=== PATIENT | female | born 1995 | race Caucasian/White ===

== ENCOUNTER 2016-03-24 20:01 | Emergency (ER) | payer MEDICAID ==
[~2016-03-24] VITALS: Ht 157.5 cm; Wt 74.8 kg
[2016-03-24 20:05] VITALS: BP 126/78; PULSE 78; RESP 16; TEMP 98.2; O2SAT 100
--- NOTE | 2016-03-24 20:15 | NUR ---
Patient AAO x4, sitting in bed, c/o 08/24 abd pain x 3 days denies N/V/D no acute distress noted. Denies chest pain, denies shortness of breath. Able to speak in full sentences. Will continue to monitor. Vital signs stable.
--- NOTE | 2016-03-24 20:15 | NUR ---
Placed in room 08 . Placed on coroner's juror, blood pressure machine and pulse oximeter. To gown for exam. Side rails up. Report given to DOT Collier.
--- NOTE | 2016-03-24 20:20 | NUR ---
ER at bedside examining patient.
[2016-03-24] MEDS ORDERED: NACL 0.9% 1,000 ML IV ONE (20:21)
--- NOTE | 2016-03-24 20:25 | NUR ---
Patient unable to urinate, md aware and patient has been told a urine sample needs to be given prior to medication by MD. Will continue to monitor.
[2016-03-24] MEDS ORDERED: BELLADONNA ALKALOIDS/PHENOBARB 5 ML UDC PO ONE (20:30)
[2016-03-24] MEDS ORDERED: PROMETHAZINE HCL 25 MG/ML AMP IVP ONE (20:30)
[2016-03-24 20:50] LABS: BASOPHILS % (AUTO) 0.3 % (0.0-2.0); EOSINOPHILS # (AUTO) 0.1 K/uL (0.0-0.4); EOSINOPHILS % (AUTO) 1.7 % (0.0-4.0); HEMATOCRIT 36.8 % (36-48); HEMOGLOBIN 12.4 g/dL (12.0-16.0); LYMPHOCYTES # (AUTO) 1.2 K/uL (1.0-5.5); LYMPHOCYTES % (AUTO) 32.7 % (20.5-51.5); MEAN CORPUSCULAR HEMOGLOBIN 30 pg (27-31); MEAN CORPUSCULAR HGB CONC 34 % (32-36); MEAN CORPUSCULAR VOLUME 89 fL (79.0-98.0); MONOCYTES # (AUTO) 0.4 K/uL (0.0-1.0); MONOCYTES % (AUTO) 11.5 % (1.7-9.3); NEUTROPHILS # (AUTO) 1.9 K/uL (1.8-7.7); NEUTROPHILS % (AUTO) 53.8 % (40.0-70.0); PLATELET COUNT (AUTO) 270 K/uL (130-430); RED BLOOD CELL COUNT(AUTO) 4.14 MIL/uL (4.2-6.2); RED CELL DISTRIBUTION WIDTH 12.6 % (9.0-15.0); WHITE BLOOD COUNT (AUTO) 3.6 K/uL (4.8-10.8)
--- NOTE | 2016-03-24 21:00 | NUR ---
Patient unable to urinate at this time. Given oral fluids and will continue to monitor. Medications to be held per md verbal order until urine sample and urine hcg is collected.
[2016-03-24 21:03] LABS: CALCIUM 8.5 mg/dL (8.4-11.0); CREATININE 0.75 mg/dL (0.55-1.30); POTASSIUM 3.8 mmol/L (3.5-5.1)
[2016-03-24 21:07] LABS: ALBUMIN 3.8 g/dL (3.4-4.8); PROTHROMBIN TIME 10.4 SECS (9.5-12.5); TOTAL BILIRUBIN 0.7 mg/dL (0.0-1.0); TOTAL PROTEIN, SERUM 7.9 g/dL (6.4-8.3)
[2016-03-24 21:22] LABS: BLOOD, URINE 3+ (NEGATIVE); CLARITY/URINE HAZY (CLEAR); GLUCOSE,URINE NEGATIVE (NEGATIVE); KETONES,URINE TRACE (NEGATIVE); LEUKOCYTE ESTERASE ,URINE NEGATIVE (NEGATIVE); NITRITE, URINE NEGATIVE (NEGATIVE); PROTEIN URINE 2+ (NEGATIVE)
[2016-03-24 21:29] LABS: BILIRUBIN,URINE NEGATIVE (NEGATIVE)
[2016-03-24 21:31] LABS: BACTERIA,URINE MANY /HPF (None Seen); COLOR,URINE YELLOW (YELLOW); RBC,URINE >100 /HPF (0-3)
[2016-03-24 21:32] LABS: MUCUS,URINE 1+ /LPF (None Seen)
[2016-03-24 22:55] VITALS: BP 125/75; PULSE 76; RESP 16; TEMP 98.2; O2SAT 100
--- NOTE | 2016-03-24 22:55 | NUR ---
Patient given written and verbal discharge instructions and verbalizes understanding. ER MD discussed with patient the results and treatment provided. Patient in stable condition. ID arm band removed. IV catheter removed intact and dressing applied, no active bleeding. Rx of Rantidine given. Patient educated on pain management and to follow up with PMD. Pain Scale 0/10. Opportunity for questions provided and answered.
== END 2016-03-24 22:55 | disposition home or self-care (01) ==
LOC: SED 20:01
DX: K29.00 Acute gastritis without bleeding (principal); Z88.8 Allergy status to other drugs, medicaments and biological substances; Z90.49 Acquired absence of other specified parts of digestive tract
CPT/HCPCS: 36415; 80053; 81000; 81025; 82150; 83690; 85025; 85610; 85730; 87086; 96361; 96374; 99284; J2550; J7030

== ENCOUNTER 2016-05-23 21:59 | Emergency (ER) | payer MEDICAID ==
[~2016-05-23] VITALS: Ht 160 cm; Wt 74.4 kg
[2016-05-23 22:10] VITALS: BP_SYST 125
--- NOTE | 2016-05-23 22:20 | NUR ---
Note jaseivan in EDM - 05/23/16 at 2329 by MUSHT[facility] PT C/O ANXIETY AND NECK MUSCLE PAIN 02/24 THAT SHE STATES IS TOLERABLE. NO N/V/D. NO DIZZINESS. PT STATES SHE TOOK OXYCODONE AND DRANK 3 CUPS OF COFFE AT HOME. SAFETY PRECUATIONS IN PLACE, WILL CONTINUE TO MONITOR.
--- NOTE | 2016-05-23 22:34 | NUR ---
Patient to ER bed 8 for evaluation. Side rails up. Report given to DTO Espinosa.
--- NOTE | 2016-05-23 22:40 | NUR ---
ER Dr. DE LOS SANTOS at bedside examining patient.
--- NOTE | 2016-05-23 22:40 | NUR ---
PT C/O ANXIETY AND NECK MUSCLE PAIN 02/24 THAT SHE STATES IS TOLERABLE. NO N/V/D. NO DIZZINESS. PT STATES SHE TOOK OXYCODONE AND DRANK 3 CUPS OF COFFE AT HOME. SAFETY PRECUATIONS IN PLACE, WILL CONTINUE TO MONITOR.
[2016-05-23 23:00] VITALS: BP_SYST 121
--- NOTE | 2016-05-23 23:00 | NUR ---
Patient given written and verbal discharge instructions and verbalizes understanding. ER MD dr. monroe discussed with patient the results and treatment provided. Patient in stable condition. ID arm band removed. Rx of xanax given. Patient educated on pain management and to follow up with PMD. Pain Scale 0/10 Opportunity for questions provided and answered.
== END 2016-05-23 23:00 | disposition home or self-care (01) ==
LOC: SED 21:59
DX: M54.2 Cervicalgia (principal); F41.9 Anxiety disorder, unspecified; Z88.8 Allergy status to other drugs, medicaments and biological substances
CPT/HCPCS: 99283

== ENCOUNTER 2016-09-10 16:23 | Emergency (ER) | payer MEDICAID ==
[~2016-09-10] VITALS: Ht 160 cm; Wt 75.7 kg
[2016-09-10 16:25] VITALS: BP_SYST 131
--- NOTE | 2016-09-10 17:00 | NUR ---
BROUGHT BACK TO BED #5 AND REPORT GIVEN TO FILEMON
--- NOTE | 2016-09-10 17:15 | NUR ---
Patient to ED for eval of possible anxiety attack, patient reports that she normally takes Xanax for this. Patient alert and oriented in nad, awaiting eval by ER MD-no other complaints at this time, will continue to observe and assess.
--- NOTE | 2016-09-10 17:30 | NUR ---
Dr Mcdonald at bedside to evaluate patient.
[2016-09-10 17:33] LABS: BILIRUBIN,URINE NEGATIVE (NEGATIVE); BLOOD, URINE 2+ (NEGATIVE); CLARITY/URINE SL HAZY (CLEAR); COLOR,URINE YELLOW (YELLOW); GLUCOSE,URINE NEGATIVE (NEGATIVE); KETONES,URINE NEGATIVE (NEGATIVE); LEUKOCYTE ESTERASE ,URINE NEGATIVE (NEGATIVE); NITRITE, URINE NEGATIVE (NEGATIVE); PH,URINE 6.5 (5.0-8.0); PROTEIN URINE NEGATIVE (NEGATIVE); UROBILINOGEN,URINE 0.2 (0.2-1.0)
[2016-09-10] MEDS ORDERED: LORazepam 1 MG TABLET PO ONE (17:45)
[2016-09-10 18:00] LABS: BASOPHILS # (AUTO) 0.1 K/uL (0.0-0.2); BASOPHILS % (AUTO) 0.8 % (0.0-2.0); EOSINOPHILS # (AUTO) 0.1 K/uL (0.0-0.4); EOSINOPHILS % (AUTO) 1.4 % (0.0-4.0); HEMATOCRIT 35.9 % (36-48); HEMOGLOBIN 12.1 g/dL (12.0-16.0); LYMPHOCYTES # (AUTO) 2.4 K/uL (1.0-5.5); LYMPHOCYTES % (AUTO) 35.1 % (20.5-51.5); MEAN CORPUSCULAR HEMOGLOBIN 30 pg (27-31); MEAN CORPUSCULAR HGB CONC 34 % (32-36); MEAN CORPUSCULAR VOLUME 88 fL (79.0-98.0); MONOCYTES # (AUTO) 0.5 K/uL (0.0-1.0); MONOCYTES % (AUTO) 7.1 % (1.7-9.3); NEUTROPHILS # (AUTO) 3.8 K/uL (1.8-7.7); NEUTROPHILS % (AUTO) 55.6 % (40.0-70.0); PLATELET COUNT (AUTO) 365 K/uL (130-430); RED BLOOD CELL COUNT(AUTO) 4.06 MIL/uL (4.2-6.2); RED CELL DISTRIBUTION WIDTH 12.8 % (9.0-15.0); WHITE BLOOD COUNT (AUTO) 6.9 K/uL (4.8-10.8)
[2016-09-10 18:08] LABS: BARBITURATE, URINE NEGATIVE (NEG <=200); BENZODIAZEPINE, URINE NEGATIVE (NEG <=150); CANNABINOID, URINE NEGATIVE (NEG <=50); COCAINE, URINE NEGATIVE (NEG <=150); METHAMPHETAMINES SCREEN,URINE NEGATIVE (NEG <=500); OPIATE, URINE NEGATIVE (NEG <=100); PHENCYCLIDINE SCREEN,URINE NEGATIVE (NEG <=25); UR TRICYCLIC ANTIDEPRESSANTS NEGATIVE (NEG <=300); URINE AMPHETAMINE NEGATIVE (NEG <=500); URINE METHADONE NEGATIVE (NEG <=200); URINE OXYCODONE SCREEN NEGATIVE (NEG <=100); URINE PROPOXYPHENE SCREEN NEGATIVE (NEG <=300)
[2016-09-10 18:10] LABS: CALCIUM 8.8 mg/dL (8.4-11.0); CREATININE 0.72 mg/dL (0.55-1.30); POTASSIUM 3.9 mmol/L (3.5-5.1)
[2016-09-10 18:13] LABS: BACTERIA,URINE FEW /HPF (None Seen); MUCUS,URINE 1+ /LPF (None Seen); WBC,URINE 0-3 /HPF (0-3)
[2016-09-10 18:15] LABS: ALBUMIN 4.1 g/dL (3.4-4.8); TOTAL BILIRUBIN 0.3 mg/dL (0.0-1.0); TOTAL PROTEIN, SERUM 8.2 g/dL (6.4-8.3)
--- NOTE | 2016-09-10 18:42 | NUR ---
Patient given written and verbal discharge instructions and verbalizes understanding. ER MD discussed with patient the results and treatment provided. Patient in stable condition. ID arm band removed. Rx of Ativan given. Patient educated on pain management and to follow up with PMD. Pain Scale 0. Opportunity for questions provided and answered.
== END 2016-09-10 18:41 | disposition home or self-care (01) ==
LOC: SED 16:23
DX: F41.9 Anxiety disorder, unspecified (principal); Z88.8 Allergy status to other drugs, medicaments and biological substances
CPT/HCPCS: 36415; 80053; 80307; 81000-TC; 81025; 85025; 93005; 99285

== ENCOUNTER 2018-05-18 13:00 | Emergency (ER) | payer BC, MEDICAID ==
[~2018-05-18] VITALS: Ht 160 cm; Wt 79.4 kg
[2018-05-18 13:00] VITALS: BP_SYST 109
[2018-05-18 14:20] LABS: BILIRUBIN,URINE NEGATIVE (NEGATIVE); BLOOD, URINE NEGATIVE (NEGATIVE); CLARITY/URINE CLEAR (CLEAR); COLOR,URINE YELLOW (YELLOW); GLUCOSE,URINE NEGATIVE (NEGATIVE); KETONES,URINE NEGATIVE (NEGATIVE); LEUKOCYTE ESTERASE ,URINE NEGATIVE (NEGATIVE); NITRITE, URINE NEGATIVE (NEGATIVE); PROTEIN URINE NEGATIVE (NEGATIVE); UROBILINOGEN,URINE 0.2 (0.2-1.0)
[2018-05-18 14:29] LABS: HEMATOCRIT 34.7 % (36-48); HEMOGLOBIN 11.7 g/dL (12.0-16.0); MEAN CORPUSCULAR HEMOGLOBIN 30 pg (27-31); MEAN CORPUSCULAR HGB CONC 34 % (32-36); MEAN CORPUSCULAR VOLUME 88 fL (79.0-98.0); PLATELET COUNT (AUTO) 339 K/uL (130-430); RED BLOOD CELL COUNT(AUTO) 3.93 MIL/uL (4.2-6.2); WHITE BLOOD COUNT (AUTO) 6.1 K/uL (4.8-10.8)
[2018-05-18 14:30] LABS: BASOPHILS % (AUTO) 0.7 % (0.0-2.0); EOSINOPHILS # (AUTO) 0.1 K/uL (0.0-0.4); LYMPHOCYTES # (AUTO) 2.6 K/uL (1.0-5.5); LYMPHOCYTES % (AUTO) 41.9 % (20.5-51.5); MONOCYTES # (AUTO) 0.6 K/uL (0.0-1.0); MONOCYTES % (AUTO) 9.2 % (1.7-9.3); NEUTROPHILS # (AUTO) 2.8 K/uL (1.8-7.7); NEUTROPHILS % (AUTO) 46.2 % (40.0-70.0)
[2018-05-18 14:34] LABS: CALCIUM 9.1 mg/dL (8.4-11.0); CREATININE 0.62 mg/dL (0.55-1.30); POTASSIUM 4.1 mmol/L (3.5-5.1)
[2018-05-18 14:34] LABS: BARBITURATE, URINE NEGATIVE (NEG <=200); BENZODIAZEPINE, URINE NEGATIVE (NEG <=150); CANNABINOID, URINE NEGATIVE (NEG <=50); COCAINE, URINE NEGATIVE (NEG <=150); METHAMPHETAMINES SCREEN,URINE NEGATIVE (NEG <=500); OPIATE, URINE NEGATIVE (NEG <=100); PHENCYCLIDINE SCREEN,URINE NEGATIVE (NEG <=25); UR TRICYCLIC ANTIDEPRESSANTS NEGATIVE (NEG <=300); URINE AMPHETAMINE NEGATIVE (NEG <=500); URINE METHADONE NEGATIVE (NEG <=200); URINE OXYCODONE SCREEN NEGATIVE (NEG <=100); URINE PROPOXYPHENE SCREEN NEGATIVE (NEG <=300)
[2018-05-18 14:39] LABS: ALBUMIN 3.8 g/dL (3.4-4.8); TOTAL BILIRUBIN 0.3 mg/dL (0.0-1.0)
== END 2018-05-18 15:30 | disposition home or self-care (01) ==
LOC: SED 13:00
DX: R20.2 Paresthesia of skin (principal)
CPT/HCPCS: 36415; 70450-TC; 70486-TC; 80053; 80307; 81003; 81025; 85025; 99284

== ENCOUNTER 2019-09-03 16:23 | Emergency (ER) | payer BC, MEDICAID ==
[~2019-09-03] VITALS: Ht 160 cm; Wt 77.1 kg
[2019-09-03 17:21] VITALS: BP_SYST 136
[2019-09-03 17:52] LABS: BASOPHILS % (AUTO) 0.4 % (0.0-2.0); EOSINOPHILS # (AUTO) 0.1 K/uL (0.0-0.4); HEMATOCRIT 36.5 % (36-48); HEMOGLOBIN 11.9 g/dL (12.0-16.0); LYMPHOCYTES # (AUTO) 1.6 K/uL (1.0-5.5); MEAN CORPUSCULAR HEMOGLOBIN 30 pg (27-31); MEAN CORPUSCULAR HGB CONC 33 % (32-36); MEAN CORPUSCULAR VOLUME 92 fL (79.0-98.0); MONOCYTES # (AUTO) 0.7 K/uL (0.0-1.0); NEUTROPHILS # (AUTO) 4.2 K/uL (1.8-7.7); NEUTROPHILS % (AUTO) 63.6 % (40.0-70.0); PLATELET COUNT (AUTO) 325 K/uL (130-430); RED BLOOD CELL COUNT(AUTO) 3.96 MIL/uL (4.2-6.2); RED CELL DISTRIBUTION WIDTH 13.3 % (9.0-15.0); WHITE BLOOD COUNT (AUTO) 6.5 K/uL (4.8-10.8)
[2019-09-03 18:13] LABS: CALCIUM 9.3 mg/dL (8.4-11.0); POTASSIUM 3.5 mmol/L (3.5-5.1)
[2019-09-03 18:14] LABS: ALBUMIN 3.9 g/dL (3.4-4.8); CREATININE 0.76 mg/dL (0.55-1.30); TOTAL BILIRUBIN 0.3 mg/dL (0.0-1.0)
--- NOTE | 2019-09-03 18:40 | NUR ---
Dr Landrum assessing patient in the triage room
--- NOTE | 2019-09-03 18:42 | NUR ---
Pt brought self,A&Ox4,pt presents to ER with vaginal spotting x 1 week, skin pink and warm, cap refill <3, VSS, respirations even and unlabored
[2019-09-03 19:09] LABS: BILIRUBIN,URINE NEGATIVE (NEGATIVE); BLOOD, URINE NEGATIVE (NEGATIVE); CLARITY/URINE CLEAR (CLEAR); COLOR,URINE YELLOW (YELLOW); GLUCOSE,URINE NEGATIVE (NEGATIVE); KETONES,URINE NEGATIVE (NEGATIVE); LEUKOCYTE ESTERASE ,URINE NEGATIVE (NEGATIVE); NITRITE, URINE NEGATIVE (NEGATIVE); PROTEIN URINE NEGATIVE (NEGATIVE); UROBILINOGEN,URINE 0.2 (0.2-1.0)
--- NOTE | 2019-09-03 19:10 | NUR ---
Patient given verbal discharge instructions and verbalizes understanding. ER MD discussed with patient the results and treatment provided. Patient in stable condition. ID arm band removed. No Rx given. Patient left without paperwork educated on pain management and to follow up with PMD. Pain Scale 0/10 . Opportunity for questions provided and answered. Medication side effect fact sheet provided.
[2019-09-03 19:15] VITALS: BP_SYST 136
== END 2019-09-03 19:15 | disposition home or self-care (01) ==
LOC: SED 16:23
DX: N93.9 Abnormal uterine and vaginal bleeding, unspecified (principal); Z88.8 Allergy status to other drugs, medicaments and biological substances
CPT/HCPCS: 36415; 80053; 81003; 81025; 84702-TC; 85025; 99283